=== PATIENT | female | born 1965 | race Caucasian/White ===

== ENCOUNTER 2020-09-27 04:48 | Day surgery (SDC) | payer OTHER, SELFPAY ==
[2020-09-17 14:31] VITALS: BMI 26.6
--- NOTE | 2020-09-27 07:34 | WPDANESEPPF ---
Anes - Initial Pre Proc Eval Procedure: Operation Date: 09/27/20 09:00 Proposed Procedures p Colonoscopy - Valeriy Gillespie MD Date/Time: 09/27/20 07:34 Surgeon: Valeriy Gillespie MD Pre Op Diagnosis: rectal bleeding Patient Data Age: 55 Gender: F Height: 1.65 m Weight: 72.5 kg Allergies Allergy/AdvReac Type Severity Reaction Status Date / Time No Known Allergies Allergy Verified 09/27/20 07:46 Home Medications Medication Instructions Recorded Confirmed Type ibuprofen 200 mg tablet 200 mg PO Q6H PRN 08/23/20 09/27/20 History Patient hx anesthesia problems: none Family hx anesthesia problems: none PMFSH Past Medical History Medical History (Updated 09/17/20 @ 14:44 by Christel Ochoa RN) Bright red blood per rectum Social History Social History (Updated 09/17/20 @ 14:40 by Christel Ochoa RN) Smoking packs per day: 0.5 Smoking cigarettes per day: 10.0 Smoking status: Current every day smoker Alcohol intake: current Drinks per week: 21 Alcohol use details: whiskey and soda Substance use: current Substance use type: marijuana Other substance usage details: daily user Living arrangements: with family Spiritual care concerns: No Anes - Eval Final PreProcedure Day of Procedure 09/27/20 07:34 Patient weight: overweight Heart: regular rate and rhythm Lungs: clear to auscultation and normal air movement Airway: Mallampati scale class II Neurological: alert and oriented Last oral intake: >/= 8 hours ASA classification: III Emergent: no Anesthetic plan: proceed Anesthesia type and monitoring: general GIVS Informed Consent: The patient's anesthetic plan and its attendant risks and benefits were discussed with the patient/family/POA. Questions were solicited and answers provided to the satisfaction of the patient/family/POA.
[2020-09-27 07:47] VITALS: BP 143/77; PULSE 97; RESP 20; TEMP 36.2; O2SAT 98; BMI 27.6
[2020-09-27] MEDS: LACTATED RINGERS 1,000 ML 150 ML IV CONT (07:56)
--- NOTE | 2020-09-27 08:53 | WPDGICN ---
Assessment and Plan Assessment and plan (1) Bright red blood per rectum: Code(s): K62.5 - Hemorrhage of anus and rectum Status: Acute Assessment and Plan: Patient had 1 episode rectal bleeding. Somewhat suspicious for hemorrhoids. She also has at the age were neoplasia screening is advised. Plan is for colonoscopy at this time. High-fiber diet is suggested. Further recommendations will be given after endoscopy. GI Consult Note Consult date/time: 09/27/20 08:53 HPI: Randi King is a 55 year old female Presents for colonoscopy. Patient has a history of rectal bleeding that lasted for 2-3 days. It was bright red blood. She had no associated pain. Seemed to be mostly after a bowel movement typically with wiping. Her bowel habits have been regular and perhaps somewhat loose. She denies any abdominal or rectal pain. Family history is noncontributory. She also desires neoplasia screening. Review of Systems Review of Systems: All systems reviewed & are unremarkable except as noted in HPI and below PMFSH Past Medical History Medical History (Updated 09/17/20 @ 14:44 by Christel Ochoa RN) Bright red blood per rectum Social History Social History (Updated 09/17/20 @ 14:40 by Christel Ochoa RN) Smoking packs per day: 0.5 Smoking cigarettes per day: 10.0 Smoking status: Current every day smoker Alcohol intake: current Drinks per week: 21 Alcohol use details: whiskey and soda Substance use: current Substance use type: marijuana Other substance usage details: daily user Living arrangements: with family Spiritual care concerns: No Meds Home Medications and Allergies Home Medications Medication Instructions Recorded Confirmed Type ibuprofen 200 mg tablet 200 mg PO Q6H PRN 08/23/20 09/27/20 History Allergies Allergy/AdvReac Type Severity Reaction Status Date / Time No Known Allergies Allergy Verified 09/27/20 07:46 Vital Signs Vital Signs - 24 hr 09/27/20 07:47 Temperature 97.1 F L Pulse Rate 97 Respiratory Rate 20 Blood Pressure 143/77 H Pulse Oximetry 98 Exam Narrative: Physical exam reveals patient be alert. Vital signs stable. HEENT exam is unremarkable. Patient is anicteric. Lungs are clear to auscultation and percussion. Heart is without murmur or extra sounds. Abdominal exam bowel sounds are present soft nontender with no organomegaly. Digital external rectal exam is normal.
[2020-09-27] MEDS: BENZOCAINE (*SP) 60 ML SPRAY CAN (HURRICAINE) 1 SPRAY MUCOUS MEM (09:13)
[2020-09-27 09:23] VITALS: BP 131/76; PULSE 91; RESP 22; O2SAT 96
[2020-09-27 09:33] VITALS: BP 144/91; PULSE 81; RESP 17; O2SAT 100
[2020-09-27 09:43] VITALS: BP 147/86; PULSE 79; RESP 23; O2SAT 100
== END 2020-09-27 10:41 | disposition home or self-care (01) ==
PROVIDERS: PCP Nurse Practitioner Family; Visit Provider Internal Medicine Gastroenterology
PROC: 0DJD8ZZ Inspection of Lower Intestinal Tract, Via Natural or Artificial Opening Endoscopic (ICD-10-PCS; CPT 45378; principal; 2020-09-27 09:00)
DX: K62.5 Hemorrhage of anus and rectum (principal); K64.8 Other hemorrhoids; F17.200 Nicotine dependence, unspecified, uncomplicated
CPT/HCPCS: 45378; J2704; J7120